=== PATIENT | male | born 1950 | race Caucasian/White ===

== ENCOUNTER 2018-03-25 19:54 | Emergency (ER) | payer OTHER | END 2018-03-25 21:44 | LOC: M.ERS 19:54 | DX: Z02.89 Encounter for other administrative examinations (principal) ==

== ENCOUNTER → 2018-11-09 | Outpatient (CLI) | payer MEDICARE, OTHER ==
[~2018-11-09] MED LIST: PERCOCET 7.5-31 EACH PO
== END ==
LOC: M.RAD 09:12
DX: M47.816 Spondylosis without myelopathy or radiculopathy, lumbar region (principal); Z98.890 Other specified postprocedural states

== ENCOUNTER 2018-11-11 18:40 | Emergency (ER) | payer MEDICARE, OTHER ==
[~2018-11-11] VITALS: Ht 177.8 cm; Wt 122.5 kg
[2018-11-11 19:40] LABS: ABSOLUTE BASOPHILS 0.1 thou/uL (0.0-0.2); ABSOLUTE EOSINOPHILS 0.1 thou/uL (0.0-0.7); ABSOLUTE LYMPHOCYTES 1.7 thou/uL (0.8-5.3); ABSOLUTE MONOCYTES 0.6 thou/uL (0.0-1.2); ABSOLUTE NEUTROPHILS 2.8 thou/uL (1.6-8.1); BASOPHILS 1.3 %; EOSINOPHILS 2.7 %; HEMATOCRIT 46.8 % (42.0-52.0); HEMOGLOBIN 16.4 gm/dL (14.0-18.0); MCH 32.6 pg (26.0-34.0); MCHC 34.9 g/dL (28.0-37.0); MCV 93.2 fL (80.0-100.0); MONOCYTES 11.6 %; MPV 9.4 fl. (7.2-11.1); NUCLEATED RBCS 0 /100WBC; PLATELET COUNT* 155 thou/uL (150-400); POLYS 52.4 %; RBC 5.02 mil/uL (4.50-6.00); RDW-CV 13.1 % (10.5-14.5); WBC 5.3 thou/uL (4.0-11.0)
[2018-11-11 19:50] LABS: ALBUMIN 3.3 g/dL (3.4-5.0); CALCIUM 8.5 mg/dL (8.5-10.1); CREATININE 1.7 mg/dL (0.6-1.3); POTASSIUM 4.2 mmol/L (3.5-5.1); TOTAL BILIRUBIN 0.5 mg/dL (<0.1-1.0); TOTAL PROTEIN 6.6 g/dL (6.4-8.2)
[2018-11-11] MEDS ORDERED: PERCOCET 7.5-31 EACH PO (20:35)
[2018-11-11 20:43] VITALS: BP 121/73
[2018-11-11 20:46] LABS: URINE BILIRUBIN NEGATIVE (Negative); URINE BLOOD NEGATIVE (Negative); URINE CLARITY CLEAR; URINE COLOR YELLOW; URINE GLUCOSE-RANDOM NEGATIVE (Negative); URINE KETONES TRACE (Negative); URINE LEUKOCYTES-REFLEX NEGATIVE (Negative); URINE NITRITE-REFLEX NEGATIVE (Negative); URINE PROTEIN NEGATIVE (Negative); URINE SPECIFIC GRAVITY >= 1.030 (1.005-1.030); URINE UROBILINOGEN 0.2 E.U./dl (0.2-1.0)
--- NOTE | 2018-11-12 11:14 | EKG ---
[place] [address] ELECTROCARDIOGRAM REPORT Name: MEGAN YU Room: [facility]#: [id number] Admission: 11/11/18 Attend Phys: Discharge: 11/11/18 Date of : 52 Report #: [id number] THIS REPORT FOR: //name// [facility] ED Test Date: 2018-11-11 Test Time: 19:15:41 Pat Name: MGEAN YU Department: Room: Gender: M Pe Manager: Sharee PARADA : 1950 Requested By: Willard Hernandez Order Number: [id number] MD: sAcencion Tejeda Measurements Intervals [place] Rate: 109 P: 25 VT: 181 QRS: 21 QRSD: 82 T: 45 QT: 315 QTc: 425 Interpretive Statements Sinus tachycardia Left atrial enlargement Low voltage, precordial leads Baseline wander in lead(s) V1 Compared to ECG 01/21/2009 02:45:59 Atrial abnormality now present Low QRS voltage now present Sinus rate has increased ST (T wave) deviation no longer present Electronically Signed On 11-12-2018 11:13:46 CDT by Ascencion Tejeda [email or web address] <ELECTRONICALLY SIGNED> By: Ascencion Tejeda MD, [facility] 11/12/18 1113 14 14 Ascencion Tejeda MD, [facility] /EPI
== END 2018-11-11 20:48 | disposition home or self-care (01) ==
LOC: M.ERS 18:40
PROVIDERS: Nurse Practitioner Psychiatric/Mental Health
DX: S32.010A Wedge compression fracture of first lumbar vertebra, initial encounter for closed fracture (principal); S32.030A Wedge compression fracture of third lumbar vertebra, initial encounter for closed fracture; I10 Essential (primary) hypertension; G89.29 Other chronic pain; W18.39XA Other fall on same level, initial encounter; Y93.89 Activity, other specified; Y92.89 Other specified places as the place of occurrence of the external cause; Y99.8 Other external cause status